=== PATIENT | female | born 1985 | race Hispanic/Latino ===

== ENCOUNTER 2017-01-18 00:47 | Emergency (ER) | payer OTHER ==
[2017-01-18 01:03] VITALS: BP 133/91; PULSE 84; RESP 18; TEMP 97.8; O2SAT 100
[2017-01-18 01:04] VITALS: BMI 26.4
--- NOTE | 2017-01-18 01:11 | ED PDOC ---
Arrival/HPI - General Time Seen by Provider: 01/18/17 00:50 Historian: Patient - History of Present Illness Narrative History of Present Illness (Text): 01/18/17 01:05 31 y/o female, no pmh, penicillin and clindamycin allergy, c/o tick bite on the head for several days. Pt. stated that she just realized the tick bite today, removed the tick by herself, concerning for lymes disease, biting site is painful, no fever or chills, no headache or night sweat, no dizziness, no palpitation, no numbness or tingling, no other medical or psychological complaints. Past Medical History - Provider Review Nursing Documentation Reviewed: Yes - Infectious Disease Hx of Infectious Diseases: None - Tetanus Immunization Tetanus Immunization: Unknown - Pulmonary Hx Asthma: Yes - Psychiatric Hx Depression: No Hx Emotional Abuse: No Hx Physical Abuse: No Hx Substance Use: No - Suicidal Assessment Feels Threatened In Home Enviroment: No Family/Social History - Physician Review Nursing Documentation Reviewed: Yes Family/Social History: Unknown Family HX Hx Alcohol Use: No Hx Substance Use: No Hx Substance Use Treatment: No Allergies/Home Meds Allergies/Adverse Reactions: Allergies clindamycin Allergy (Verified 01/18/17 01:09) RASH Penicillins Allergy (Verified 01/18/17 01:09) RASH Review of Systems - Review of Systems Constitutional: absent: Fatigue, Fevers Eyes: absent: Vision Changes ENT: absent: Hearing Changes Respiratory: absent: SOB, Cough, Sputum Cardiovascular: absent: Chest Pain Musculoskeletal: absent: Arthralgias, Back Pain, Neck Pain, Joint Swelling, Myalgias Skin: absent: Rash, Pruritis, Skin Lesions Physical Exam Vital Signs Reviewed: Yes Vital Signs Temp Pulse Resp BP Pulse Ox 01/18/17 01:02 97.8 F 84 18 133/91 H 100 Temperature: Afebrile Blood Pressure: Hypertensive Pulse: Regular Respiratory Rate: Normal Appearance: Positive for: Well-Appearing, Non-Toxic, Comfortable Pain Distress: Mild Mental Status: Positive for: Alert and Oriented X 3 - Systems Exam Head: Present: Tenderness (visible rt. posterior occipital region remove the scab and the bite wound is mild redness). No: Contusion, Swelling, Ecchymosis Pupils: Present: PERRL Extroacular Muscles: Present: EOMI Conjunctiva: Present: Normal Mouth: Present: Moist Mucous Membranes Pharnyx: No: ERYTHEMA, EXUDATE, TONSILS ENLARGED, Muffled/Hoarse Voice, Soft Palate/Uvular Edema Nose (External): No: Abrasion, Contusion, Laceration Nose (Internal): Present: No Active Bleeding. No: Rhinorrhea, Septal Hematoma, Epistaxis Neck: Present: Trachea Midline. No: MIDLINE TENDERNESS, Lymphadenopathy Respiratory/Chest: Present: Clear to Auscultation, Good Air Exchange. No: Respiratory Distress, Accessory Muscle Use, Wheezes, Retracting, Rhonchi Cardiovascular: Present: Regular Rate and Rhythm, Normal S1, S2. No: Murmurs Abdomen: Present: Normal Bowel Sounds. No: Tenderness, Distention Neurological: Present: GCS=15, Speech Normal, Motor Func Grossly Intact, Memory Normal Skin: Present: Warm, Dry, Normal Color Psychiatric: Present: Alert, Oriented x 3, Normal Insight, Normal Concentration Medical Decision Making ED Course and Treatment: 01/18/17 01:20 -lymes IGG and IGM ordered. -I will prophylatically treat with doxycycline, advised she will need to have lymes Igg and IGM withn 2-3 weeks for follow up. -Discharge home with doxycyline, stay hydrated, follow up with your own pmd within 2 days, return to the ER for any new or worsening signs or symptoms. - PA / PRACTICAL NURSE CLINICAL COORDINATOR / Resident Statement / has reviewed & agrees with the documentation as recorded. Disposition/Present on Arrival - Present on Arrival Any Indicators Present on Arrival: No History of DVT/PE: No History of Uncontrolled Diabetes: No Urinary Catheter: No History of Decub. Ulcer: No History Surgical Site Infection Following: None - Disposition Have Diagnosis and Disposition been Completed?: Yes Diagnosis: Tick bite Disposition: HOME/ ROUTINE Disposition Time: :21 Patient Plan: Discharge Condition: GOOD Additional Instructions: Discharge home with doxycyline, stay hydrated, follow up with your own pmd within 2 days, return to the ER for any new or worsening signs or symptoms. If you have lymes disease, you will need additional prescription for doxycyline. Prescriptions: Doxycycline Hyclate 100 mg PO BID #20 cap Referrals: [facility] at [facility] [place] [Outside] - Follow up with primary Forms: WORK NOTE
[2017-01-18 18:16] LABS: LYME IGM NEGATIVE (NEGATIVE)
[2017-01-18 18:52] LABS: LYME IGG NEGATIVE (NEGATIVE)
== END 2017-01-18 01:45 | disposition home or self-care (01) ==
LOC: ED 00:47
DX: S00.86XA Insect bite (nonvenomous) of other part of head, initial encounter (principal); W57.XXXA Bitten or stung by nonvenomous insect and other nonvenomous arthropods, initial encounter; Y93.89 Activity, other specified; Y92.89 Other specified places as the place of occurrence of the external cause

== ENCOUNTER 2019-01-14 09:50 | Outpatient (CLI) | payer OTHER | END 2019-01-14 09:51 | disposition home or self-care (01) | LOC: RAD 09:50 ==